=== PATIENT | male | born 1985 | race Caucasian/White ===

== ENCOUNTER 2022-09-28 15:34 | Emergency (ER) | payer SELFPAY ==
[~2022-09-28] VITALS: Ht 172.7 cm; Wt 91.0 kg
[2022-09-28 15:36] VITALS: BP 142/95
== END 2022-09-28 19:51 | disposition left against medical advice (07) ==
LOC: ER 15:56
DX: R06.02 Shortness of breath (principal); Z53.21 Procedure and treatment not carried out due to patient leaving prior to being seen by health care provider
CPT/HCPCS: 93005; 99281